=== PATIENT | male | born 1985 | race Two or more races ===

== ENCOUNTER 2023-09-02 19:21 | Emergency (ER) | payer OTHER ==
[~2023-09-02] VITALS: Ht 177.8 cm; Wt 70.8 kg
[2023-09-02 19:48] VITALS: TEMP 98.4
[2023-09-02] MEDS ORDERED: CLONIDINE HCL 0.1 MG TABLET ONE (20:30)
[2023-09-02] MEDS ORDERED: SULF1TAB48 PO (20:33)
[2023-09-02] MEDS ORDERED: CEPH500C2 PO (20:33)
[2023-09-02] MEDS: CLONIDINE HCL 0.1 MG TABLET PO ONE (20:40)
[2023-09-02 20:52] VITALS: BP 137/74; O2SAT 100
== END 2023-09-02 20:55 | disposition home or self-care (01) ==
LOC: ER 19:21
DX: L03.116 Cellulitis of left lower limb (principal); F11.13 Opioid abuse with withdrawal; Z60.2 Problems related to living alone